=== PATIENT | female | born 2000 | race Caucasian/White ===

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

== ENCOUNTER → 2020-07-19 | Outpatient (REF) | payer BC | LOC: M SFHCWAGY 12:38 | PROVIDERS: ATTEND Nurse Practitioner Women's Health | DX: Z11.3 Encounter for screening for infections with a predominantly sexual mode of transmission (principal) ==

== ENCOUNTER → 2020-08-01 | Outpatient (CLI) | payer BC ==
[2020-08-01 09:34] LABS: APPEARANCE, URINE CLEAR (CLEAR); BACTERIA, URINE AUTO 1+ (NEGATIVE); BILIRUBIN, URINE AUTO NEGATIVE (NEGATIVE); BLOOD, URINE BLOOD NEGATIVE (NEGATIVE); COLOR, URINE YELLOW (YELLOW); GLUCOSE, URINE (UA) AUTO NEGATIVE (NEGATIVE); KETONE, URINE AUTO 1+ mg/dL (NEGATIVE); LEUKOCYTE ESTERASE, URINE AUTO NEGATIVE (NEGATIVE); MUCUS, URINE SMALL (NEGATIVE); NITRITE, URINE AUTO NEGATIVE (NEGATIVE); PROTEIN, URINE AUTO NEGATIVE (NEGATIVE); RBC, URINE AUTO 0 /HPF (0-3); SPECIFIC GRAVITY URINE AUTO 1.021 (1.002-1.035); SQUAMOUS EPITHELIAL CELL UR AU 0 /HPF (0-6); UROBILINOGEN, URINE AUTO 0.2 mg/dL (0.0-2.0); WBC, URINE AUTO 1 /HPF (0-3)
== END ==
LOC: M LAB 08:44
DX: N39.0 Urinary tract infection, site not specified (principal)

== ENCOUNTER → 2020-10-12 | Outpatient (REF) | payer BC ==
[2020-10-12 15:02] LABS: GC DNA AMPLIFICATION NEGATIVE (NEGATIVE)
== END ==
LOC: M SFHCWAGY 12:41
PROVIDERS: ATTEND Nurse Practitioner Women's Health
DX: Z11.3 Encounter for screening for infections with a predominantly sexual mode of transmission (principal)

== ENCOUNTER → 2021-11-25 | Outpatient (REF) | payer BC, OTHER ==
[~2021-11-25] MED LIST changes: +ETON68IM SC; -NEXP1IMP SC
== END ==
LOC: M SFHCWAGY 08:24
PROVIDERS: ATTEND Specialist
DX: Z01.419 Encounter for gynecological examination (general) (routine) without abnormal findings (principal); Z12.4 Encounter for screening for malignant neoplasm of cervix; Z77.9 Other contact with and (suspected) exposures hazardous to health

== ENCOUNTER 2022-09-09 23:43 | Emergency (ER) | payer OTHER ==
[~2022-09-09] VITALS: Ht 165.1 cm; Wt 124.2 kg
[2022-09-09 23:43] VITALS: TEMP 97.8; O2SAT 100
[2022-09-10 00:57] LABS: LIPASE 47 U/L (12-53)
[2022-09-10 00:59] LABS: ALKALINE PHOSPHATASE 106 U/L (46-116); ALT/SGPT 11 U/L (7.0-40); AST/SGOT < 8 U/L (<34); BILIRUBIN,DIRECT 0.1 MG/DL (<0.4); BILIRUBIN,TOTAL 0.3 MG/DL (0.3-1.2)
[2022-09-10 01:01] LABS: HCG, SERUM QUALITATIVE NEGATIVE (NEGATIVE)
[2022-09-10 01:02] LABS: BASO # 0.1 10^3/uL (0.0-0.2); BASO % 0.7 % (0.0-1.0); EOS # 0.2 10^3/uL (0.0-0.5); EOS % 1.2 % (0.0-3.0); HEMOGLOBIN 13.3 g/dl (12.0-15.5); LYMPH # 3.3 10^3/uL (1.5-5.0); LYMPH % 22.3 % (24.0-44.0); MEAN CORPUSCULAR HEMOGLOBIN 28.5 pg (27.0-33.0); MEAN CORPUSCULAR HGB CONC 32.4 g/dl (32.0-36.5); MONO # 1.3 10^3/uL (0.0-0.8); MONO % 8.5 % (2.0-8.0); NEUTROPHILS # 9.9 10^3/uL (1.5-8.5); PLATELET COUNT, AUTOMATED 247 10^3/uL (150-450); RED BLOOD COUNT 4.66 10^6/uL (4.00-5.40); WHITE BLOOD COUNT 14.8 10^3/uL (4.0-10.0)
[2022-09-10] MEDS ORDERED: hydrALAZINE 20MG/ML 1ML VIAL IV STA (03:01)
[2022-09-10] MEDS ORDERED: hydrALAZINE 20MG/ML 1ML VIAL As Ordered ONE (03:03)
[2022-09-10 04:00] VITALS: BP 122/72
[2022-09-10] MEDS ORDERED: CEFP200T PO (04:36)
[2022-09-10] MEDS ORDERED: CEFDINIR 300 MG CAP (OMNICEF) PO ONE (04:40)
== END 2022-09-10 05:00 | disposition home or self-care (01) ==
LOC: M ED 23:43
DX: N12 Tubulo-interstitial nephritis, not specified as acute or chronic (principal); N83.02 Follicular cyst of left ovary

== ENCOUNTER 2023-05-01 19:49 | Emergency (ER) | payer OTHER ==
[~2023-05-01] VITALS: Ht 165.1 cm; Wt 125.0 kg
[~2023-05-01 19:49] MED LIST changes: +CEFP200T PO
[2023-05-01 20:47] LABS: BASO # 0.1 10^3/uL (0.0-0.2); BASO % 0.6 % (0.0-1.0); EOS # 0.1 10^3/uL (0.0-0.5); EOS % 1.1 % (0.0-3.0); HEMATOCRIT 39.5 % (36.0-47.0); HEMOGLOBIN 12.7 g/dl (12.0-15.5); LYMPH # 3.1 10^3/uL (1.5-5.0); LYMPH % 24.5 % (24.0-44.0); MEAN CORPUSCULAR HEMOGLOBIN 28.2 pg (27.0-33.0); MEAN CORPUSCULAR HGB CONC 32.2 g/dl (32.0-36.5); MEAN CORPUSCULAR VOLUME 87.8 fl (80.0-96.0); MONO # 1.1 10^3/uL (0.0-0.8); MONO % 8.8 % (2.0-8.0); NEUTROPHILS % 64.7 % (36.0-66.0); PLATELET COUNT, AUTOMATED 277 10^3/uL (150-450); WHITE BLOOD COUNT 12.4 10^3/uL (4.0-10.0)
[2023-05-01 21:08] LABS: LIPASE 44 U/L (12-53)
[2023-05-01 21:09] LABS: HCG, SERUM QUANTITATIVE 107.7 MIU/ML (<4.2)
[2023-05-01 21:10] LABS: ALBUMIN 3.8 G/DL (3.2-5.2); ALKALINE PHOSPHATASE 106 U/L (46-116); ALT/SGPT 12 U/L (7.0-40); AST/SGOT 9 U/L (<34); BILIRUBIN,DIRECT 0.1 MG/DL (<0.4); BILIRUBIN,TOTAL 0.3 MG/DL (0.3-1.2); BLOOD UREA NITROGEN 12 MG/DL (9-23); CALCIUM LEVEL 8.4 MG/DL (8.5-10.1); CARBON DIOXIDE LEVEL 27 MMOL/L (20-31); CHLORIDE LEVEL 108 MMOL/L (98-107); CREATININE FOR GFR 0.62 MG/DL (0.55-1.30); GLOMERULAR FILTRATION RATE > 60.0 (>60); GLUCOSE, FASTING 106 MG/DL (60-100); POTASSIUM SERUM 4.3 MMOL/L (3.5-5.1); SODIUM LEVEL 141 MMOL/L (136-145)
[2023-05-02] MEDS ORDERED: MULTTAB20 PO (00:54)
[2023-05-02] MEDS: RHOGAM 300MCG (1500IU) INJ IM ONE (04:27)
[2023-05-02 05:15] VITALS: BP 155/70; TEMP 98; O2SAT 99
== END 2023-05-02 05:16 | disposition home or self-care (01) ==
LOC: M ED 19:49
DX: O26.851 Spotting complicating pregnancy, first trimester (principal); O20.0 Threatened abortion; Z79.1 Long term (current) use of non-steroidal anti-inflammatories (NSAID); Z79.810 Long term (current) use of selective estrogen receptor modulators (SERMs)
CPT/HCPCS: 76801; 76817; 80048; 80076; 81001; 83690; 84702; 85025; 86850; 86900; 86901; 93976; 96372; 99283; J2790

== ENCOUNTER → 2023-05-04 | Outpatient (REF) | payer OTHER ==
[~2023-05-04] MED LIST changes: +MULTTAB20 PO
== END ==
LOC: M LABDRWAD 17:37
PROVIDERS: ATTEND Advanced Practice Midwife
DX: O20.9 Hemorrhage in early pregnancy, unspecified (principal)

== ENCOUNTER 2023-05-06 14:57 | Emergency (ER) | payer OTHER ==
[~2023-05-06] VITALS: Ht 165.1 cm; Wt 124.8 kg
[2023-05-06 14:58] VITALS: BP 161/98; TEMP 97.9; O2SAT 99
== END 2023-05-06 16:50 | disposition home or self-care (01) ==
LOC: M ED 14:57
DX: O20.0 Threatened abortion (principal); F10.10 Alcohol abuse, uncomplicated; Z79.810 Long term (current) use of selective estrogen receptor modulators (SERMs)

== ENCOUNTER → 2023-05-06 | Outpatient (CLI) | payer OTHER | LOC: M LAB 09:32 | PROVIDERS: ATTEND Advanced Practice Midwife | DX: O20.9 Hemorrhage in early pregnancy, unspecified (principal) ==

== ENCOUNTER 2023-05-08 12:42 | Outpatient (CLI) | payer OTHER ==
[~2023-05-08] VITALS: Ht 165.1 cm; Wt 124.2 kg
[2023-05-08 13:20] VITALS: BP 133/76; O2SAT 100
[2023-05-08] MEDS: METHOTREXATE 50MG/2ML VIAL IM ONE (13:52)
[2023-05-08 14:50] VITALS: BP 123/68; O2SAT 97
== END 2023-05-08 14:55 | disposition home or self-care (01) ==
LOC: M INFU 12:42
PROVIDERS: ATTEND Advanced Practice Midwife
DX: O00.91 Unspecified ectopic pregnancy with intrauterine pregnancy (principal)
CPT/HCPCS: 96372; J9260

== ENCOUNTER → 2023-05-11 | Outpatient (CLI) | payer OTHER | LOC: M PLALAB 15:52 | PROVIDERS: ATTEND Advanced Practice Midwife | DX: O00.90 Unspecified ectopic pregnancy without intrauterine pregnancy (principal); Z3A.00 Weeks of gestation of pregnancy not specified ==

== ENCOUNTER → 2023-05-14 | Outpatient (CLI) | payer OTHER | LOC: M PLALAB 15:36 | PROVIDERS: ATTEND Advanced Practice Midwife | DX: O00.90 Unspecified ectopic pregnancy without intrauterine pregnancy (principal) ==

== ENCOUNTER → 2023-12-19 | Outpatient (CLI) | payer OTHER | LOC: M PLALAB 15:38 | PROVIDERS: ATTEND Obstetrics & Gynecology | DX: O20.9 Hemorrhage in early pregnancy, unspecified (principal) ==

== ENCOUNTER → 2024-02-11 | Outpatient (CLI) | payer OTHER | LOC: M PLALAB 15:37 | PROVIDERS: ATTEND Obstetrics & Gynecology | DX: O20.9 Hemorrhage in early pregnancy, unspecified (principal) ==

== ENCOUNTER → 2024-02-14 | Outpatient (CLI) | payer OTHER | LOC: M PLALAB 16:06 | PROVIDERS: ATTEND Obstetrics & Gynecology | DX: Z32.01 Encounter for pregnancy test, result positive (principal) ==

== ENCOUNTER 2024-02-24 17:44 | Emergency (ER) | payer OTHER ==
[~2024-02-24] VITALS: Ht 165.1 cm; Wt 125.5 kg
[2024-02-24 17:47] VITALS: BP 141/86; TEMP 97.5; O2SAT 100
[2024-02-24 18:47] LABS: BASO # 0.1 10^3/uL (0.0-0.2); BASO % 0.5 % (0.0-1.0); EOS # 0.1 10^3/uL (0.0-0.5); EOS % 1.4 % (0.0-3.0); HEMATOCRIT 37.7 % (36.0-47.0); HEMOGLOBIN 12.4 g/dl (12.0-15.5); LYMPH # 2.6 10^3/uL (1.5-5.0); LYMPH % 27.2 % (24.0-44.0); MEAN CORPUSCULAR HEMOGLOBIN 29.2 pg (27.0-33.0); MEAN CORPUSCULAR HGB CONC 32.9 g/dl (32.0-36.5); MEAN CORPUSCULAR VOLUME 88.9 fl (80.0-96.0); MONO # 0.8 10^3/uL (0.0-0.8); MONO % 8.6 % (2.0-8.0); NEUTROPHILS # 5.9 10^3/uL (1.5-8.5); PLATELET COUNT, AUTOMATED 221 10^3/uL (150-450); RED BLOOD COUNT 4.24 10^6/uL (4.00-5.40); WHITE BLOOD COUNT 9.4 10^3/uL (4.0-10.0)
[2024-02-24 19:09] LABS: HCG, SERUM QUANTITATIVE 821.3 MIU/ML (<4.2)
[2024-02-24 21:29] LABS: BLOOD UREA NITROGEN 16 MG/DL (9-23); CARBON DIOXIDE LEVEL 22 MMOL/L (20-31); CHLORIDE LEVEL 107 MMOL/L (98-107); CREATININE FOR GFR 0.66 MG/DL (0.55-1.30); GLOMERULAR FILTRATION RATE > 60.0 (>60); GLUCOSE, FASTING 101 MG/DL (60-100); POTASSIUM SERUM 3.7 MMOL/L (3.5-5.1); SODIUM LEVEL 140 MMOL/L (136-145)
[2024-02-24 22:21] LABS: Trichomonas vaginalis (AMP) NOT DETECTED (NEGATIVE)
[2024-02-24 22:44] LABS: GC DNA AMPLIFICATION NEGATIVE (NEGATIVE)
== END 2024-02-25 00:26 | disposition home or self-care (01) ==
LOC: M ED 17:44
DX: O26.851 Spotting complicating pregnancy, first trimester (principal); Z3A.01 Less than 8 weeks gestation of pregnancy; Z79.810 Long term (current) use of selective estrogen receptor modulators (SERMs)

== ENCOUNTER → 2024-02-26 | Outpatient (REF) | payer OTHER | LOC: M LAB REF 14:46 | PROVIDERS: ATTEND Specialist | DX: O00.90 Unspecified ectopic pregnancy without intrauterine pregnancy (principal) ==

== ENCOUNTER → 2024-02-28 | Outpatient (CLI) | payer OTHER ==
[2024-02-28 17:50] LABS: HEMATOCRIT 36.8 % (36.0-47.0); HEMOGLOBIN 11.8 g/dl (12.0-15.5); MEAN CORPUSCULAR HEMOGLOBIN 28.9 pg (27.0-33.0); MEAN CORPUSCULAR HGB CONC 32.1 g/dl (32.0-36.5); MEAN CORPUSCULAR VOLUME 90.2 fl (80.0-96.0); PLATELET COUNT, AUTOMATED 218 10^3/uL (150-450); RED BLOOD COUNT 4.08 10^6/uL (4.00-5.40); WHITE BLOOD COUNT 8.9 10^3/uL (4.0-10.0)
[2024-02-28 18:21] LABS: HCG, SERUM QUANTITATIVE 93.9 MIU/ML (<4.2)
[2024-02-28 18:22] LABS: ALBUMIN 3.9 G/DL (3.2-5.2); ALKALINE PHOSPHATASE 93 U/L (35-104); ALT/SGPT 15 U/L (7.0-40); AST/SGOT 11 U/L (<34); BILIRUBIN,TOTAL 0.4 MG/DL (0.3-1.2); BLOOD UREA NITROGEN 14 MG/DL (9-23); CARBON DIOXIDE LEVEL 27 MMOL/L (20-31); CHLORIDE LEVEL 107 MMOL/L (98-107); CREATININE FOR GFR 0.61 MG/DL (0.55-1.30); GLOMERULAR FILTRATION RATE > 60.0 (>60); GLUCOSE, FASTING 83 MG/DL (60-100); POTASSIUM SERUM 4.3 MMOL/L (3.5-5.1); SODIUM LEVEL 142 MMOL/L (136-145); TOTAL PROTEIN 7.1 G/DL (5.7-8.2)
== END ==
LOC: M PLALAB 15:46
PROVIDERS: ATTEND Specialist
DX: O00.90 Unspecified ectopic pregnancy without intrauterine pregnancy (principal)

== ENCOUNTER → 2024-04-28 | Outpatient (CLI) | payer OTHER | LOC: M PLALAB 15:39 | PROVIDERS: ATTEND Advanced Practice Midwife | DX: Z87.59 Personal history of other complications of pregnancy, childbirth and the puerperium (principal) ==

== ENCOUNTER → 2024-04-30 | Outpatient (CLI) | payer OTHER | LOC: M PLALAB 15:35 | PROVIDERS: ATTEND Advanced Practice Midwife | DX: Z87.59 Personal history of other complications of pregnancy, childbirth and the puerperium (principal) ==

== ENCOUNTER → 2024-05-05 | Outpatient (CLI) | payer OTHER | LOC: M PLALAB 15:50 | PROVIDERS: ATTEND Advanced Practice Midwife | DX: O46.90 Antepartum hemorrhage, unspecified, unspecified trimester (principal); Z3A.00 Weeks of gestation of pregnancy not specified ==

== ENCOUNTER → 2024-05-07 | Outpatient (CLI) | payer OTHER | LOC: M PLALAB 15:27 | PROVIDERS: ATTEND Advanced Practice Midwife | DX: O46.90 Antepartum hemorrhage, unspecified, unspecified trimester (principal); Z3A.00 Weeks of gestation of pregnancy not specified ==

== ENCOUNTER → 2024-06-03 | Outpatient (REF) | payer OTHER | LOC: M PLALAB 08:24 | PROVIDERS: ATTEND Advanced Practice Midwife | DX: Z53.9 Procedure and treatment not carried out, unspecified reason (principal) ==

== ENCOUNTER → 2024-06-16 | Outpatient (CLI) | payer OTHER ==
[2024-06-16 14:13] LABS: HEMOGLOBIN 13.2 g/dl (12.0-15.5); MEAN CORPUSCULAR HEMOGLOBIN 28.8 pg (27.0-33.0); MEAN CORPUSCULAR HGB CONC 32.2 g/dl (32.0-36.5); MEAN CORPUSCULAR VOLUME 89.5 fl (80.0-96.0); PLATELET COUNT, AUTOMATED 205 10^3/uL (150-450); RED BLOOD COUNT 4.58 10^6/uL (4.00-5.40); WHITE BLOOD COUNT 7.4 10^3/uL (4.0-10.0)
[2024-06-16 14:26] LABS: Trichomonas vaginalis (AMP) NOT DETECTED (NEGATIVE)
[2024-06-16 14:50] LABS: GC DNA AMPLIFICATION NEGATIVE (NEGATIVE)
[2024-06-16 15:12] LABS: HIV 1&2 SCREEN NEGATIVE (NEGATIVE)
[2024-06-16 15:20] LABS: HEPATITIS C VIRUS ABY INDEX 0.07 INDEX (<0.8)
== END ==
LOC: M PLALAB 11:08
PROVIDERS: ATTEND Advanced Practice Midwife
DX: Z34.81 Encounter for supervision of other normal pregnancy, first trimester (principal)

== ENCOUNTER → 2024-09-24 | Outpatient (CLI) | payer OTHER | LOC: M WHC 06:40 | PROVIDERS: ATTEND Advanced Practice Midwife | DX: Z36.2 Encounter for other antenatal screening follow-up (principal); Z3A.27 27 weeks gestation of pregnancy; O32.2XX0 Maternal care for transverse and oblique lie, not applicable or unspecified ==

== ENCOUNTER 2024-10-02 04:39 | Outpatient (CLI) | payer OTHER ==
[~2024-10-02] VITALS: Ht 167.6 cm; Wt 125.6 kg
[2024-10-02] MEDS ORDERED: HOME MED LIST COMPLETE! XX SCH (04:55)
[2024-10-02] MEDS ORDERED: ASPI81CH33 PO (04:55)
[2024-10-02 04:59] VITALS: BP 121/72
== END 2024-10-02 06:11 | disposition home or self-care (01) ==
LOC: M LDO 04:39
PROVIDERS: ATTEND Advanced Practice Midwife
DX: O36.8130 Decreased fetal movements, third trimester, not applicable or unspecified (principal); O99.213 Obesity complicating pregnancy, third trimester; O09.293 Supervision of pregnancy with other poor reproductive or obstetric history, third trimester; E66.9 Obesity, unspecified; Z3A.26 26 weeks gestation of pregnancy
CPT/HCPCS: 59025; G0463

== ENCOUNTER → 2024-10-15 | Outpatient (CLI) | payer OTHER ==
[~2024-10-15] MED LIST changes: +ASPI81CH33 PO
== END ==
LOC: M WHC 06:42
PROVIDERS: ATTEND Obstetrics & Gynecology
DX: Z36.8A Encounter for antenatal screening for other genetic defects (principal)

== ENCOUNTER → 2024-10-15 | Outpatient (CLI) | payer OTHER ==
[2024-10-15 11:19] LABS: GLUCOSE CHALLENGE TEST 1 HOUR 87 MG/DL (LESS THAN 140)
[2024-10-15 11:27] LABS: PLATELET COUNT, AUTOMATED 187 10^3/uL (150-450)
[2024-10-15 11:54] LABS: HIV 1&2 SCREEN NEGATIVE (NEGATIVE)
[2024-10-15 12:02] LABS: HEPATITIS C VIRUS ABY INDEX < 0.02 INDEX (<0.8)
[2024-10-15 12:42] LABS: GC DNA AMPLIFICATION NEGATIVE (NEGATIVE)
[2024-10-15 12:51] LABS: Trichomonas vaginalis (AMP) NOT DETECTED (NEGATIVE)
== END ==
LOC: M PLALAB 07:46
PROVIDERS: ATTEND Obstetrics & Gynecology
DX: Z34.92 Encounter for supervision of normal pregnancy, unspecified, second trimester (principal)

== ENCOUNTER → 2024-11-21 | Outpatient (CLI) | payer OTHER ==
[~2024-11-21] MED LIST changes: +COLA100C5 PO; +IBUP80TA PO; +LABE20TAB PO; +NIFE1TAB52 PO; +PERCOCET PO; +PHENYLephrine 500MCG 5ML (100MCG/ML) SYRINGE As Ordered ONE
== END ==
LOC: M RAD 13:01
PROVIDERS: ATTEND Obstetrics & Gynecology
DX: O36.5930 Maternal care for other known or suspected poor fetal growth, third trimester, not applicable or unspecified (principal); Z3A.00 Weeks of gestation of pregnancy not specified

== ENCOUNTER 2024-11-22 08:13 | Inpatient (IN) | payer OTHER ==
[2024-11-22] VITALS (41 sets, daily range): BP systolic 118–181; BP diastolic 55–95; TEMP 98.3; O2SAT 88–97
[~2024-11-22] VITALS: Ht 165.1 cm; Wt 137.1 kg
[~2024-11-22 08:13] MED LIST changes: -COLA100C5 PO; -IBUP80TA PO; -NIFE1TAB52 PO; -PERCOCET PO; -PHENYLephrine 500MCG 5ML (100MCG/ML) SYRINGE As Ordered ONE
[2024-11-22] MEDS: NIFEdipine 10 MG CAP PO ONE (09:38)
[2024-11-22 09:55] LABS: PLATELET COUNT, AUTOMATED 167 10^3/uL (150-450)
[2024-11-22 09:57] LABS: TOTAL PROTEIN,RANDOM URINE 32.4 MG/DL (0.0-14.0)
[2024-11-22 10:21] LABS: LDH LACTATE DEHYDROGENASE 187 U/L (120-246)
[2024-11-22 10:22] LABS: ALT/SGPT 39 U/L (7.0-40); AST/SGOT 36 U/L (<34); CALCIUM LEVEL 8.8 MG/DL (8.5-10.1); CARBON DIOXIDE LEVEL 21 MMOL/L (20-31); CHLORIDE LEVEL 109 MMOL/L (98-107); CREATININE FOR GFR 0.59 MG/DL (0.55-1.30); GLOMERULAR FILTRATION RATE > 90.0 (>60); POTASSIUM SERUM 3.8 MMOL/L (3.5-5.1); SODIUM LEVEL 143 MMOL/L (136-145)
[2024-11-22] MEDS ORDERED: TRANEXAMIC ACID INJection 1,000 MG in NS 100 ML IV PRN (14:30)
[2024-11-22] MEDS ORDERED: CARBOPROST TROMETHAMINE 250 MCG/ML AMP IM PRN (14:30)
[2024-11-22] MEDS ORDERED: LIDOCAINE 1% MDV 20 ML VIAL INFIL PRN (14:30)
[2024-11-22] MEDS: FUROSEMIDE 20 MG/2 ML VIAL IV ONE (15:37)
[2024-11-22] MEDS: LR 1,000 ML IV SCH (15:37)
[2024-11-22] MEDS: BICITRA 30 ML SOLN UDC PO ONE (15:37)
[2024-11-22] MEDS ORDERED: MORPHINE PRES-FREE INJ 10 MG/10 ML VIAL As Ordered ONE (15:37)
[2024-11-22] MEDS: ceFAZolin SODIUM 3 GM in DEXTROSE 5% (D5W) MINI-BAG PLU 100 ML IV ONE (15:37)
[2024-11-22] MEDS ORDERED: ONDANSETRON 4MG 2ML VIAL As Ordered ONE (15:38)
[2024-11-22] MEDS ORDERED: OXYTOCIN 30UNITS IN 0.9% NaCl 500ML IV BAG As Ordered ONE (15:38)
[2024-11-22] MEDS ORDERED: ACETAMINOPHEN 1000MG/100ML IV BAG As Ordered ONE (15:38)
[2024-11-22] MEDS ORDERED: dexAMETHasone 4 MG/ML 1 ML VIAL As Ordered ONE (15:38)
[2024-11-22] MEDS ORDERED: KETOROLAC 30 MG/ML 1 ML VIAL As Ordered ONE (15:38)
[2024-11-22] MEDS ORDERED: MEPERIDINE 25 MG/ML 1 ML VIAL IV PRN (16:20)
[2024-11-22] MEDS ORDERED: HYDROMORPHONE HCL 0.5 MG/0.5 ML SYRINGE IV PRN (16:20)
[2024-11-22] MEDS ORDERED: ONDANSETRON 4MG 2ML VIAL IV PRN (16:20)
[2024-11-22] MEDS ORDERED: NALOXONE INJ 0.4 MG/1 ML VIAL IV PRN ×2 (16:20)
[2024-11-22] MEDS ORDERED: diphenhydrAMINE 50 MG/ML VIAL IV PRN ×2 (16:20)
[2024-11-22] MEDS ORDERED: NALBUPHINE HCL 10 MG/ML 1 ML AMP IV PRN (16:20)
[2024-11-22] MEDS ORDERED: **NOTE PATIENT COMMENT** MISC XX SCH (16:20)
[2024-11-22 17:29] LABS: CORD GAS ABE A -3.5; CORD GAS ABE V -1.7; CORD GAS HCO3 A 22.7 MMOL/L; CORD GAS HCO3 V 24.0 MMOL/L; CORD GAS O2 SAT A 48.5 %; CORD GAS O2 SAT V 42.2 %; CORD GAS PCO2 A 44.8 mmHg; CORD GAS PCO2 V 43.9 mmHg; CORD GAS PH A 7.322 UNITS; CORD GAS PH V 7.356 UNITS; CORD GAS PO2 A 21.5 mmHg; CORD GAS PO2 V 19.2 mmHg; CORD GAS SBC A 20.3 MMOL/L; CORD GAS SBC V 21.6 MMOL/L; CORD GAS TCO2 A 24.0 MMOL/L; CORD GAS TCO2 V 25.4 MMOL/L
[2024-11-22] MEDS ORDERED: PERCOCET 5MG/325MG TAB PO PRN ×2 (18:05)
[2024-11-22] MEDS ORDERED: MOM 30 ML SUSPENSION UDC PO PRN (18:05)
[2024-11-22] MEDS ORDERED: ANUSOL HC CREAM 30 GM TOP PRN (18:05)
[2024-11-22] MEDS ORDERED: SIMETHICONE 80MG CHEW TAB PO PRN (18:05)
[2024-11-22] MEDS ORDERED: CALCIUM CARBONATE 500 MG CHEW U/D PO PRN (18:05)
[2024-11-22] MEDS ORDERED: MORPHINE 4 MG/ML 1 ML VIAL IV PRN (18:05)
[2024-11-22] MEDS ORDERED: PERCOCET PO (18:16)
[2024-11-22] MEDS ORDERED: COLA100C5 PO (18:16)
[2024-11-22] MEDS ORDERED: IBUP80TA PO (18:16)
[2024-11-22] MEDS: OXYTOCIN DRIP 30 UNITS in IV 1 EA IV SCH (18:29)
[2024-11-22] MEDS: SLF 3 ML SYR IV SCH (18:31)
[2024-11-22] MEDS: LABETALOL 200 MG TAB PO SCH (20:19)
[2024-11-22] MEDS: DOCUSATE SODIUM 100 MG CAPSULE PO SCH (21:00)
[2024-11-22] MEDS: KETOROLAC 30 MG/ML 1 ML VIAL IV SCH (22:54)
[2024-11-22] MEDS: ONDANSETRON 4MG 2ML VIAL IV PRN (22:54)
[2024-11-23] VITALS (22 sets, daily range): BP systolic 116–161; BP diastolic 65–93; O2SAT 90–97
[2024-11-23] MEDS: PRENATAL VITAMINS CHEWABLE TABLET PO SCH (09:26)
[2024-11-23 10:21] LABS: PLATELET COUNT, AUTOMATED 163 10^3/uL (150-450)
[2024-11-23] MEDS: FERROUS SULFATE 325 MG TAB PO SCH (11:23)
[2024-11-23 11:41] LABS: HIV 1&2 SCREEN NEGATIVE (NEGATIVE)
[2024-11-23 11:49] LABS: HEPATITIS C VIRUS ABY INDEX < 0.02 INDEX (<0.8)
[2024-11-23] MEDS: RHOGAM 300MCG (1500IU) INJ IM SCH (14:31)
[2024-11-23] MEDS: ACETAMINOPHEN 500 MG TAB PO PRN (16:28)
[2024-11-23] MEDS: IBUPROFEN 800 MG TAB PO SCH (17:29)
[2024-11-24 02:00] VITALS: BP 134/67; O2SAT 97
[2024-11-24 06:00] VITALS: BP 136/79; O2SAT 97
[2024-11-24] MEDS ORDERED: MEASLES,MUMPS,RUBELLA VACCINE INJ (MMR-II) SC.IMMUN ONE (09:00)
[2024-11-24 10:00] VITALS: BP 138/72; O2SAT 97
[2024-11-24 14:00] VITALS: BP 135/85; O2SAT 98
[2024-11-24 18:00] VITALS: BP 141/83; O2SAT 98
[2024-11-24 22:00] VITALS: BP 121/63; O2SAT 98
[2024-11-25 02:00] VITALS: BP 140/81; O2SAT 98
[2024-11-25 06:00] VITALS: BP 141/79; O2SAT 96
[2024-11-25 08:45] VITALS: BP 130/77
[2024-11-25] MEDS: MEASLES,MUMPS,RUBELLA VACCINE INJ (MMR-II) SC.IMMUN ONE (13:28)
== END 2024-11-25 13:40 | disposition home or self-care (01) | DRG 788 ==
LOC: M LDO 08:13 → M LDI 14:35 → M OBS 11-23 12:30
PROVIDERS: ADMIT Obstetrics & Gynecology; ATTEND Obstetrics & Gynecology
PROC: B246ZZZ Ultrasonography of Right and Left Heart (ICD-10-PCS; 2024-11-22)
PROC: 10D00Z1 Extraction of Products of Conception, Low, Open Approach (ICD-10-PCS; principal; 2024-11-22 16:00)
DX: O14.14 Severe pre-eclampsia complicating childbirth (principal); Z37.0 Single live birth; Z3A.33 33 weeks gestation of pregnancy

== ENCOUNTER → 2025-01-01 | Outpatient (CLI) | payer OTHER ==
[~2025-01-01] MED LIST changes: +COLA100C5 PO; +IBUP80TA PO; +NIFE1TAB52 PO; +PERCOCET PO
[2025-01-01 13:47] LABS: ALT/SGPT 13.0 U/L (7.0-40); AST/SGOT 14.0 U/L (<34); CALCIUM LEVEL 9.4 MG/DL (8.5-10.1); CARBON DIOXIDE LEVEL 28.0 MMOL/L (20-31); CHLORIDE LEVEL 104.0 MMOL/L (98-107); CREATININE FOR GFR 0.97 MG/DL (0.55-1.30); GLOMERULAR FILTRATION RATE 83.7 (>60); POTASSIUM SERUM 4.6 MMOL/L (3.5-5.1); SODIUM LEVEL 141.0 MMOL/L (136-145)
[2025-01-01 13:50] LABS: PLATELET COUNT, AUTOMATED 215 10^3/uL (150-450)
== END ==
LOC: M PLALAB 11:18
PROVIDERS: ATTEND Obstetrics & Gynecology
DX: Z39.2 Encounter for routine postpartum follow-up (principal)